=== PATIENT | female | born 1940 | race Caucasian/White ===

== ENCOUNTER 2019-02-15 13:58 | Inpatient (IN) ==
[2019-02-15] MEDS ORDERED: Ipratropium/Albuterol Neb 3 ML IH ONE (14:04)
[2019-02-15] MEDS ORDERED: predniSONE 20 MG TABLET PO ONE (14:04)
[2019-02-15 15:19] LABS: Basophils # 0.1 K/mcL (0.0-0.2); Basophils % 0.7 %; Eosinophils # 0.3 K/mcL (0.0-0.6); Eosinophils % 2.9 %; Hematocrit 47.3 % (35.3-44.9); Immature Granulocytes % 0.4 % (0-4); Lymphocytes # 2.2 K/mcL (0.6-4.6); Lymphocytes % 26.1 %; Mean Corpuscular HGB Conc 33.8 g/dL (31.6-35.5); Mean Corpuscular Hemoglobin 30.3 pg (28.0-33.3); Mean Corpuscular Volume 89.6 fL (83.0-100.0); Mean Platelet Volume 9.9 fL (9.4-12.4); Monocytes # 0.6 K/mcL (0.0-1.3); Monocytes % 7.5 %; Neutrophils # 5.3 K/mcL (1.6-8.9); Platelet Count 286 K/mcL (140-400); Red Blood Count 5.28 M/mcL (3.82-4.97); Red Cell Distribution Width 14.9 % (11.5-14.5); Segmented Neutrophils % 62.4 %; White Blood Count 8.5 K/mcL (4.3-11.1)
[2019-02-15 15:34] LABS: BUN/Creatinine Ratio 16 (6-26); Blood Urea Nitrogen 15 mg/dL (8-23); Calcium 9.5 mg/dL (8.6-10.3); Carbon Dioxide 28 mEq/L (23-29); Chloride 98 mEq/L (98-107); Glucose 115 mg/dL (70-105); Osmolality,Calculated 284 (280-300); Potassium 3.2 mEq/L (3.5-5.1); Sodium 136 mEq/L (136-145); eGFR For African Americans > 60 (> 60); eGFR For Non-African Americans 59 (> 60)
[2019-02-15 15:35] LABS: Troponin I < 0.03 ng/mL (< 0.04)
[2019-02-15 15:44] LABS: Platelet Estimate Normal (Normal); Reactive Lymphocytes Present (Not Present)
[2019-02-15] MEDS ORDERED: Benzonatate 100 MG CAPSULE PO ONE (16:54)
[2019-02-15] MEDS ORDERED: Isovue-370 500 ML BOTTLE IVP ONE (16:54)
[2019-02-15] MEDS ORDERED: Albuterol 2.5 MG/3 ML NEBULIZER IH ONE (18:37)
[2019-02-15] MEDS ORDERED: *HR* LORazepam 2 MG/ML VIAL IVP ONE (19:33)
[2019-02-15] MEDS ORDERED: Hydrocortisone Rectal 2.5% CRM 28 GM TUBE RC PRN (20:41)
[2019-02-15] MEDS ORDERED: *HR* LORazepam 1 MG TABLET PO PRN (20:41)
[2019-02-15] MEDS ORDERED: Potassium Chloride Elixir 20 MEQ/15 ML UDC PO ONE (20:43)
[2019-02-15] MEDS ORDERED: Ipratropium/Albuterol Neb 3 ML IH PRN (20:43)
[2019-02-15] MEDS ORDERED: Ondansetron 4 MG/2 ML VIAL IVP PRN (20:43)
[2019-02-15] MEDS ORDERED: Famotidine 20 MG/2 ML VIAL IVP ONE (20:44)
[2019-02-15] MEDS ORDERED: Ringers Solution, Lactated 1,000 ML IVC SCH (20:45)
[2019-02-15] MEDS ORDERED: Acetaminophen 325 MG TABLET PO PRN (21:29)
[2019-02-15] MEDS: GuaiFENesin/Codeine Oral Soln 5 ML UDC PO SCH (22:46)
[2019-02-15] MEDS: Mag Hydrox/Al Hydrox/Simeth 30 ML UDC PO SCH (22:47)
[2019-02-15 23:12] LABS: Adenovirus Not Detected (Not Detect); Coronavirus 229E Not Detected (Not Detect); Coronavirus HKU1 Not Detected (Not Detect); Coronavirus NL63 Not Detected (Not Detect); Coronavirus OC43 Not Detected (Not Detect); Human Metapneumovirus Not Detected (Not Detect); Human Rhinovirus/Enterovirus Not Detected (Not Detect); Influenza A Subtype 2009 H1 Not Detected (Not Detect); Influenza A Untypeable Not Detected (Not Detect); Influenza B Not Detected (Not Detect); Parainfluenza Virus 1 Not Detected (Not Detect); Parainfluenza Virus 2 Not Detected (Not Detect); Parainfluenza Virus 3 Not Detected (Not Detect); Parainfluenza Virus 4 Not Detected (Not Detect)
[2019-02-15 23:13] LABS: Bordetella Pertussis Not Detected (Not Detect); Chlamydophila pneumoniae Not Detected (Not Detect); Mycoplasma pneumoniae Not Detected (Not Detect); Respiratory Syncytial Virus DETECTED (Not Detect)
[2019-02-16] MEDS ORDERED: traMADol 50 MG TABLET PO ONE (00:34)
[2019-02-16 01:42] LABS: Hematocrit 40.4 % (35.3-44.9); Immature Granulocytes % 0.5 % (0-4); Lymphocytes % 8.7 %; Mean Corpuscular HGB Conc 32.7 g/dL (31.6-35.5); Mean Corpuscular Hemoglobin 29.7 pg (28.0-33.3); Mean Platelet Volume 9.8 fL (9.4-12.4); Monocytes % 2.4 %; Platelet Count 244 K/mcL (140-400); Red Blood Count 4.44 M/mcL (3.82-4.97); Segmented Neutrophils % 88.2 %; White Blood Count 10.1 K/mcL (4.3-11.1)
[2019-02-16 01:43] LABS: Basophils % 0.2 %; Lymphocytes # 0.9 K/mcL (0.6-4.6); Monocytes # 0.2 K/mcL (0.0-1.3); Neutrophils # 8.9 K/mcL (1.6-8.9)
[2019-02-16 01:46] LABS: Hemoglobin 13.2 g/dL (11.5-15.4)
[2019-02-16 02:01] LABS: BUN/Creatinine Ratio 18 (6-26); Blood Urea Nitrogen 14 mg/dL (8-23); Calcium 9.2 mg/dL (8.6-10.3); Carbon Dioxide 25 mEq/L (23-29); Chloride 95 mEq/L (98-107); Glucose 182 mg/dL (70-105); Osmolality,Calculated 275 (280-300); Sodium 130 mEq/L (136-145); eGFR For African Americans > 60 (> 60); eGFR For Non-African Americans > 60 (> 60)
[2019-02-16] MEDS: *HR* Heparin 5,000 UNIT/ML VIAL SQ SCH ×2 (05:15→18:30)
[2019-02-16] MEDS ORDERED: NON-FORMULARY MEDICATION 1 EACH EACH (Losartan/Hydrochlorothiazide [Hyzaar 100-12.5 Tablet PO SCH (09:00)
[2019-02-16] MEDS ORDERED: NON-FORMULARY MEDICATION 1 EACH EACH (Glucosamine/D3/Boswellia Serra [Osteo Bi-Flex Tablet PO SCH (09:00)
[2019-02-16] MEDS: Cholecalciferol (D-3) 1,000 UNIT (25MCG) TABLET PO SCH (09:18)
[2019-02-16] MEDS: Vitamin B Complex/Vit C/Vit E 1 EACH TABLET PO SCH (09:18)
[2019-02-16] MEDS: amLODIPine 5 MG TABLET PO SCH (09:19)
[2019-02-16] MEDS: Multivit/Ca/Min/Fe/FA 1 TAB TABLET PO SCH (09:19)
[2019-02-16] MEDS: BuPROPion XL (24 HR) 150 MG TABLET PO SCH (09:19)
[2019-02-16] MEDS: GuaiFENesin/Codeine Oral Soln 5 ML UDC PO SCH ×4 (09:20→20:37)
[2019-02-16] MEDS: Aspirin 81 MG TAB.CHEW PO SCH (09:20)
[2019-02-16] MEDS: Ipratropium/Albuterol Neb 3 ML IH SCH ×3 (11:58→20:05)
[2019-02-16] MEDS: predniSONE 20 MG TABLET PO SCH (18:30)
[2019-02-16] MEDS: Mag Hydrox/Al Hydrox/Simeth 30 ML UDC PO SCH (20:37)
[2019-02-17] MEDS: Ipratropium/Albuterol Neb 3 ML IH SCH ×4 (00:30→11:21)
[2019-02-17 03:14] LABS: Thyroid Stimulating Hormone 0.514 mcIU/mL (0.340-5.600)
[2019-02-17 03:16] LABS: Triiodothyronine (T3) Free 3.78 pg/mL (2.50-3.90)
[2019-02-17] MEDS: *HR* Heparin 5,000 UNIT/ML VIAL SQ SCH (06:19)
[2019-02-17] MEDS: BuPROPion XL (24 HR) 150 MG TABLET PO SCH (09:19)
[2019-02-17] MEDS: Multivit/Ca/Min/Fe/FA 1 TAB TABLET PO SCH (09:20)
[2019-02-17] MEDS: amLODIPine 5 MG TABLET PO SCH (09:20)
[2019-02-17] MEDS: GuaiFENesin/Codeine Oral Soln 5 ML UDC PO SCH (09:20)
[2019-02-17] MEDS: Cholecalciferol (D-3) 1,000 UNIT (25MCG) TABLET PO SCH (09:20)
[2019-02-17] MEDS: Vitamin B Complex/Vit C/Vit E 1 EACH TABLET PO SCH (09:20)
[2019-02-17] MEDS: Aspirin 81 MG TAB.CHEW PO SCH (09:20)
[2019-02-17] MEDS: predniSONE 20 MG TABLET PO SCH (09:20)
[2019-02-17 11:44] VITALS: BP 159/83
== END 2019-02-17 13:18 | disposition home or self-care (01) | DRG 202 ==
LOC: 3NENU 13:58 → EMEROOARM 13:58 → 3NENU 20:23 → 3BNU 02-16 10:14 → SUATTDRO 02-16 13:11
PROVIDERS: ADMIT Internal Medicine; ATTEND Family Medicine